=== PATIENT | male | born 1985 | race Caucasian/White ===

== ENCOUNTER 2016-09-06 19:47 | Emergency (ER) | payer SELFPAY ==
--- NOTE | 2016-09-06 19:57 | PDOC ---
Back Pain / Injury HPI - General Chief Complaint: Neck / Back Complaint Stated Complaint: Lower Back Pain Date Seen by Provider: 09/06/16 Time Seen by Provider: 19:52 Source: Patient Exam Limitations: POSITIVE: No limitations Nurse's Notes Reviewed & Considered: Yes - History of Present Illness Initial Comments: Patient comes in today with chief complaint back pain. She was change in baby' s diaper and felt a pop and had increasing pain with tingling down his bilateral legs left greater than right. He is taken Vicoprofen, prednisone, 3- 10 mg tablets of Flexeril, and no relief. He denies any recent fever chills sweats, nausea vomiting diarrhea, rashes, chest pain, shortness of breath, cough. Body Location Affected: REPORTS: Back Timing: REPORTS: Abrupt Duration: <24 hours Severity: Severe Quality: REPORTS: "Pain", Sharpness, Stabbing Context: REPORTS: Sitting, Standing, Activity Location at Time of Onset: REPORTS: Home Modifying Factors: improves with: Nothing Associated Symptoms: REPORTS: Back pain, Other (tingling) Similar Symptoms Previously: Yes Recent Care Received: REPORTS: Denies Any Prior Injuries Related to Current Complaint?: No - Patient Home Medications Home Medications: Home Medications Cyclobenzaprine HCl 1 tab PO BEDTIME tab 05/31/16 Hydrocodone/Acetaminophen [Hydrocodon-Acetaminophn 10-325] 1 tab PO TID PRN #90 tab 08/07/16 Esomeprazole Magnesium [Nexium] 1 tab PO QD #30 cap 08/21/16 Hydrocodone/Ibuprofen [Hydrocodone-Ibuprofen 7.5-200] 1 tab PO 2-3XD PRN #90 tab 08/21/16 - Patient Allergies Allergies/Adverse Reactions: Allergies Allergy/AdvReac Type Severity Reaction Status Date / Time codeine AdvReac Intermediate NAUSEA Verified 09/06/16 19:55 Past Medical History - heen HEENT History: Denies History Cardiovascular History: Hypertension, Arrhythmia Additional Cardiovasular History: UNKNOWN TYPE OF ARRYTHMIA Respiratory History: Asthma, Pneumonia Additional Respiratory History: hx Influenza A Gastrointestinal History: Denies History Genitourinary History: Other (please comment) Additional Genitourinary History: HX KIDNEY INFECTION Endocrine History: Denies History Musculoskeletal History: Other (please comment) Prosthesis or Implant: No Additional Musculoskeletal History: CHRONIC BACK PAIN Neurological History: Denies History Blood Disorders: Denies History Psychiatric History: Denies History Cancer History: Denies History History of MDRO: No Alcohol Use: Occasionally Substance Use Type: None Previous Surgical History: Yes Type / Date of Surgery: BACK Anesthesia Reactions: No Malignant Hyperthermia: No Significant Family History: No pertinent family hx ROS - Limitations ROS Limitations: No Limitations Constitution: REPORTS: Denies Symptoms Cardiovascular: REPORTS: Denies Cardiac Symptoms Respiratory: REPORTS: Denies Resp Symptoms Neurological: REPORTS: Tingling (Bilateral legs) Gastrointestinal: REPORTS: Denies GI Symptoms Endocrine: REPORTS: Denies Symptoms Musculoskeletal: REPORTS: Back Pain Genitourinary: REPORTS: Denies Symptoms Eyes: REPORTS: Denies Symptoms ENT: REPORTS: Denies Symptoms Skin: REPORTS: Denies Skin Symptoms Lympathic: REPORTS: Denies Lympathic Symptoms Immunologic: POSITIVE: Denies Symptoms Psychiatric: POSITIVE: Denies Psych Symptoms Back Physical Assessment - General Appearance General Appearance: REPORTS: Alert, Cooperative, No Evidence of Trauma, Anxious - HEENT HEENT: POSITIVE: Head Inspection Nml, Eyes Inspection Nml, Ears Inspection Nml, Nose Inspection Nml, PERRL, EOMI - Pupil Size Pupil Size: 4 mm: Bilateral - Neck Neck: POSITIVE: Non Tender, Painless ROM - Respiratory / CVS Respiratory / CVS: POSITIVE: Chest Non Tender, No Ecchymosis - Abdomen Abdomen: Soft: (All Quadrants), Denies Tenderness: (All Quadrants) - Back Back: REPORTS: Muscle Spasm (Paraspinal muscles of the lumbar spine left greater than right.), Limited ROM - Skin Skin: REPORTS: Intact, Normal For Race, Warm, Dry, No Rash - Extremities Extremity Assessment: Non-Tender: (ALL), Normal ROM: (ALL), No Edema: (ALL) Musculoskeletal: REPORTS: Back Pain - Neurological / Psychological Neuro / Psych: POSITIVE: Oriented X3, defense analyst Normal As Tested, Motor Normal, Sensation Normal Reflexes: Patellar (R): 3+, Patellar (L): 3+ Back Progress - Patient's Progress Pain Medication Addressed: POSITIVE: Yes Re-Examine Time: 21:06 (No improvement.) Re-Examine Time:: 21:53 Status: POSITIVE: Unchanged MDM / ED Course: Patient was brought back to the emergency department, examined, and received oral Valium, dexamethasone, and IM Toradol. His pain did not improve. He then received oral daily, and oral baclofen. His pain again did not improved. Review of his chart shows a history of marijuana abuse, hepatitis C, and marijuana abuse. His MRI results are unconvincing for the the amount of pain that he has. His history seems to indicate drug-seeking behavior. Patient is being discharged home on baclofen instructions to follow up with his primary care physician. - Consult Counseled: POSITIVE: Patient, Family, RE: DX, RE: Need for F/U Patient Care Time - Estimated PCT Patient Care Time (In Minutes): 30 Vital Signs - Recent Vital Signs Vital Signs: Vital Signs (Last 8 hours) Temp Pulse Resp BP Pulse Ox 09/06/16 19:50 97.3 F 81 16 127/89 96 - VS Reviewed Vital Signs Reviewed: Yes Discharge Clinical Impression: Chronic low back pain Discharge Disposition: Discharged to Home Condition: Stable Patient Instructions Given at Discharge: Back Pain (ED)
[2016-09-06] MEDS ORDERED: DEXAMETHASONE SOD PHOSPHATE 4 MG/1 ML VIAL IVP ONE ×2 (20:01→20:13)
[2016-09-06] MEDS ORDERED: DIAZEPAM 10 MG/2 ML (5 MG/1 ML) CARPUJECT IVP ONE (20:01)
[2016-09-06] MEDS ORDERED: KETOROLAC 30 MG/1 ML VIAL IVP ONE (20:01)
[2016-09-06 20:04] VITALS: RESP 16; TEMP 97.3
[2016-09-06] MEDS ORDERED: KETOROLAC 60 MG/2 ML VIAL IM ONE (20:12)
[2016-09-06] MEDS ORDERED: DIAZEPAM 5 MG TABLET PO ONE (20:12)
[2016-09-06] MEDS ORDERED: HYDROmorphone Tab 4 MG TAB PO ONE (21:05)
[2016-09-06] MEDS ORDERED: BACLOFEN 20 MG TABLET PO ONE (21:05)
== END 2016-09-06 22:10 | disposition home or self-care (01) ==
LOC: ER 19:47
DX: M54.5 Low back pain (principal); R20.0 Anesthesia of skin
CPT/HCPCS: 96372; 96374; 96375; 99282; 99283; J1885; J1100

== ENCOUNTER → 2016-09-07 | Outpatient (CLI) | payer OTHER ==
--- NOTE | 2016-09-09 13:51 | DI ---
LUMBAR SPINE SERIES, 09/07/2016 11:00 AM: Clinical History: Acute left-sided low back pain without sciatica. Previous Exam: None at this facility. Upright AP and lateral and upright lateral flexion and extension views are submitted. The vertebral b odies are of normal height and size. Mild to moderate L5-S1 disc space narrowing is present and the r emaining disc spaces are of normal height. No instability is noted with flexion and extension maneuve rs. The pedicles and posterior elements are unremarkable. Both SI joints are normal. Reading: Mild to moderate L5-S1 disc space narrowing. There is no instability noted with flexion and extension maneuvers.
== END ==
LOC: MOB RAD 11:01
PROVIDERS: ATTEND Nurse Practitioner
DX: M54.5 Low back pain (principal); M48.07 Spinal stenosis, lumbosacral region; F17.210 Nicotine dependence, cigarettes, uncomplicated
CPT/HCPCS: 72110

== ENCOUNTER → 2016-12-11 | Outpatient (CLI) | payer OTHER ==
--- NOTE | 2016-12-11 11:58 | DI ---
HISTORY: Left-sided low back pain. History of two back surgeries. TECHNIQUE: Multiplanar multisequential images were obtained of the lumbar spine. FINDINGS: Study is limited without sagittal T2 fat saturation images. Normal conus medullaris terminating at L1. There is no evidence for acute compression fracture or carver bluxation. There is no spondylolisthesis or spondylolysis. IMPRESSION: 1. Study is limited without sagittal T2 fat saturation images. No significant herniations, foraminal or canal stenosis.
== END ==
LOC: MRI 08:50
DX: M54.5 Low back pain (principal)
CPT/HCPCS: 72158